=== PATIENT | male | born 1960 | race Caucasian/White ===

== ENCOUNTER 2016-12-14 18:21 | Emergency (ER) | payer MEDICAID, OTHER ==
[~2016-12-14] VITALS: Ht 182.9 cm; Wt 90.7 kg
[2016-12-14] MEDS ORDERED: ZOLP5TAB2 PO (18:39)
[2016-12-14] MEDS ORDERED: CLONIDINE HCL 0.1 MG TABLET PO ONE (19:00)
[2016-12-14] MEDS ORDERED: CLONIDINE HCL 0.1 MG TABLET ONE (19:19)
--- NOTE | 2016-12-14 19:19 | NUR ---
klabs drawn/urine sent/ekg and cxr done/monitor shows nsr/ptpositionedfor comfort.
[2016-12-14] MEDS ORDERED: ASPIRIN 325 MG TABLET PO ONE (19:30)
[2016-12-14] MEDS ORDERED: ASPIRIN 325 MG TABLET ONE (19:50)
[2016-12-14 19:56] LABS: *BILIRUBIN,URIN NEGATIVE (NEGATIVE); *BLOOD, URINE NEGATIVE (NEGATIVE); *CLARITY,URINE CLEAR (CLEAR); *COLOR,URINE YELLOW (YELLOW); *KETONES,URINE 1+ (NEGATIVE); *PROTEIN,URINE NEGATIVE (NEGATIVE); *UROBILINOGEN,URINE 0.2 E.U./dl (NORMAL); BASOPHILS % (AUTO) 0.1 % (0.0-2.0); EOSINOPHILS # (AUTO) 0.1 K/uL (0.0-0.7); EOSINOPHILS % (AUTO) 2.4 % (0.0-7.0); HEMATOCRIT 45.7 % (40-50); HEMOGLOBIN 15.7 G/DL (14.0-18.0); LEUKOCYTE ESTERASE ,URINE NEGATIVE (NEGATIVE); LYMPHOCYTES # (AUTO) 1.7 K/UL (0.8-4.8); LYMPHOCYTES % (AUTO) 29.1 % (20.5-51.5); MEAN CORPUSCULAR HEMOGLOBIN 30.8 UUG (27.0-31.0); MEAN CORPUSCULAR HGB CONC 34 g/dL (32.0-37.0); MEAN CORPUSCULAR VOLUME 89.5 FL (82.0-92.0); MONOCYTES # (AUTO) 0.5 K/UL (0.1-1.30); MONOCYTES % (AUTO) 9.4 % (0.0-11.0); NEUTROPHILS # (AUTO) 3.5 K/UL (1.8-8.9); NITRITE, URINE NEGATIVE (NEGATIVE); PH,URINE 5.5 (5.0-8.0); PLATELET COUNT (AUTO) 354 K/UL (150-450); RED BLOOD CELL COUNT(AUTO) 5.11 MIL/UL (4.7-6.1); UGLUCOSE NEGATIVE (NEGATIVE); WHITE BLOOD COUNT (AUTO) 5.9 K/UL (4.0-11.2)
[2016-12-14 19:58] LABS: CREATININE 0.9 mg/dL (0.6-1.3); POTASSIUM 4.3 mmol/L (3.5-5.1)
[2016-12-14 20:02] LABS: BACTERIA,URINE NONE SEEN /HPF (NONE SEEN); RBC,URINE 0-3 /HPF (0-3); SQUAMOUS EPITHELIAL CELL,UR NONE SEEN /HPF (NONE SEEN); WBC,URINE 0-3 /HPF (0-3)
[2016-12-14 20:14] LABS: BILIRUBIN,TOTAL 0.4 mg/dL (0.2-1.0); TOTAL PROTEIN, SERUM 8.3 g/dL (6.4-8.2)
[2016-12-14] MEDS ORDERED: LISINOPRIL 10 MG TABLET PO ONE (20:25)
--- NOTE | 2016-12-14 20:49 | NUR ---
dr longo spoke with the pt.pt then had [place] d/c'd intact. pt d/c'd home, aci/rx x1 copy of ekg and tests, and aci given to pt.pt got dressed and ambulated w/o diff/took all belongings.
[2016-12-14] MEDS ORDERED: LISINOPRIL 10 MG TABLET ONE (20:50)
[2016-12-14 20:51] VITALS: BP 167/97
== END 2016-12-14 20:52 | disposition home or self-care (01) ==
LOC: ER 18:23
DX: R07.9 Chest pain, unspecified (principal); I10 Essential (primary) hypertension; Z86.718 Personal history of other venous thrombosis and embolism
CPT/HCPCS: 36415; 70030-TC; 71010; 85025; 93005; A4663

== ENCOUNTER 2017-07-12 06:24 | Emergency (ER) | payer OTHER ==
[~2017-07-12] VITALS: Ht 177.8 cm; Wt 86.2 kg
[~2017-07-12 06:24] MED LIST: ZOLP5TAB2 PO
[2017-07-12] MEDS ORDERED: LISI-603 PO (06:34)
[2017-07-12] MEDS ORDERED: ROSU20TA PO (06:34)
--- NOTE | 2017-07-12 06:43 | NUR ---
PATIENT WALKED INTO ER FROM HOME FOR ELEVATED BLOOD PRESSURE, SBP IN 160'S. TAKES PRESCRIBED LISINOPRIL ORDERED. DENIES CHEST PAIN, SHORTNESS OF BREATH, PALPITATIONS, DIZZINESS, NAUSEA OR VOMITING.
--- NOTE | 2017-07-12 06:45 | NUR ---
DR. LALA AT BEDSIDE FOR MSE.
--- NOTE | 2017-07-12 07:00 | NUR ---
Patient discharged to home in stable conditon. Written and verbal after care instructions given. Patient verbalizes understanding of instructions. PATIENT LEFT WITH STABLE GAIT.
[2017-07-12 07:02] VITALS: BP 151/88
== END 2017-07-12 07:03 | disposition home or self-care (01) ==
LOC: ER 06:24
DX: I10 Essential (primary) hypertension (principal); I25.2 Old myocardial infarction; Z86.73 Personal history of transient ischemic attack (TIA), and cerebral infarction without residual deficits; Z79.899 Other long term (current) drug therapy
CPT/HCPCS: A4663